=== PATIENT | male | born 1965 | race Caucasian/White ===

== ENCOUNTER 2018-07-23 06:44 | Day surgery (SDC) | payer OTHER ==
[~2018-07-23] VITALS: Ht 172.7 cm; Wt 117.9 kg
[2018-07-23] VITALS (8 sets, daily range): BP systolic 114–143; BP diastolic 78–91
--- NOTE | 2018-07-23 06:24 | Anethesia Preoperative Eval ---
Anesthesia Pre-op PMH/ROS General Date of Evaluation: Jul 23, 2018 Time of Evaluation: 06:21 Anesthesiologist: ankit ASA Score: ASA 3 Mallampati Score Class I : Soft palate, uvula, fauces, pillars visible Class II: Soft palate, uvula, fauces visible Class III: Soft palate, base of uvula visible Class IV: Only hard plate visible Mallampati Classification: Class II Surgeon: joe Diagnosis: gerd Surgical Procedure: egd Anesthesia History: none Social History: smoking - former smoker Family History: no anesthesia problems Allergies: Coded Allergies: No Known Allergies (Unverified , 07/22/18) Medications: see eMAR Past Medical History Cardiovascular: Reports: HTN Gastrointestinal/Genitourinary: Reports: other - ed Musculoskeletal/Integumentary: Reports: other - back injury, back pain Other: obesity PSxH Narrative: colostomy, hernia repair, pelvic sx, Anesthesia Pre-op Phys. Exam Physician Exam Last Vital Signs Date Time Temp Pulse Resp B/P (MAP) Pulse Ox O2 Delivery O2 Flow Rate FiO2 07/23/18 07:15 98.2 70 20 123/91 (102) 96 98.2 07/23/18 07:10 Room Air Constitutional: NAD Neurologic: CN 2-12 intact Cardiovascular: RRR Respiratory: CTA Gastrointestinal: S/NT/ND Airway Exam Mallampati Score: Class II MO: full Neck: short TMD: 2fb ROM: full Teeth: intact Anesthesia Pre-op A/P Risk Assessment & Plan Assessment: asa3 Plan: mac Status Change Before Surgery: No Pre-Antibiotics Drug: Preeti Mathis MD Jul 23, 2018 06:24
[~2018-07-23 06:44] MED LIST: Atropine Inj 1mg/10ml Syr IV PRN; CELEBREX200 MG ORAL; DITROPAN10 MG ORAL; DiphenhydrAMINE 50mg/ml Inj IVP PRN; HYZAAR 100-12.1 EACH ORAL; Midazolam 2mg/2ml Inj IVP PRN; OMEPRAZOLE20 M3 ORAL; TRAMADOL HCL50 MG ORAL; fentaNYL 100 mcg/2 mL IV PRN
[2018-07-23] MEDS ORDERED: LR 1000ml 1,000 ML IVLG SCH (07:00)
[2018-07-23] MEDS ORDERED: AMLODIPINE BESYLATE (07:14)
[2018-07-23] MEDS ORDERED: AMLODIPINE BESY10 MG ORAL (07:14)
[2018-07-23] MEDS ORDERED: Propofol 200mg/20ml IV ONE (07:30)
[2018-07-23] MEDS ORDERED: LR 1000ml ONE (07:30)
[2018-07-23] MEDS ORDERED: Lidocaine 1% MPF 10mg/ml 5ml ONE (07:30)
--- NOTE | 2018-07-23 07:52 | Short Stay Surgery H&P ---
History of Present Illness History of Present Illness Chief Complaint Abdominal pains/GERD/heartburn HPI Je Faith is a 52 year old male who was admitted on for GERD/ Abdominal pains Patient History Allergies: Coded Allergies: No Known Allergies (Unverified , 07/22/18) PAST MEDICAL HISTORY: (1) History of colon surgery (2) History of bladder surgery (3) Pelvic fracture (4) Hypertension (5) Hyperlipidemia Medication History Scheduled Amlodipine Besylate* (Amlodipine Besylate*), 10 MG ORAL DAILY, (Reported) Celecoxib* (Celebrex*), 200 MG ORAL DAILY, (Reported) Losartan/Hydrochlorothiazide 100-12.5 Tablet (Hyzaar 100-12.5 Tablet), 1 TAB ORAL DAILY, (Reported) Omeprazole (Omeprazole), 20 MG ORAL DAILY, (Reported) Oxybutynin Chloride (Oxybutynin Chloride), 10 MG ORAL DAILY, (Reported) Scheduled PRN Tramadol Hcl* (Ultram*), 50 MG ORAL NEEDED PRN for For Pain, (Reported) Durable Medical Equipment [Amlodipine Besylate], (Reported), (DME) Physical Exam Vital Signs Last Vital Signs Date Time Temp Pulse Resp B/P (MAP) Pulse Ox O2 Delivery O2 Flow Rate FiO2 07/23/18 07:15 98.2 70 20 123/91 (102) 96 98.2 07/23/18 07:10 Room Air Plan Attestation Are the patient's medical conditions optimized for surgery? Matthias Curtis MD Jul 23, 2018 07:52
--- NOTE | 2018-07-23 07:53 | Pre-Procedure Note/Attestation ---
Pre-Procedure Note/Attestation Complete Prior to Procedure Planned Procedure: left Procedure Narrative: Examination of the upper GI tract via endoscopy Indications for Procedure Pre-Operative Diagnosis: R/O Peptic Ulcer/Esophagitis/Gastritis Attestation I attest that I discussed the nature of the procedure; its benefits; risks and complications; and alternatives (and the risks and benefits of such alternatives ), prior to the procedure, with the patient (or the patient's legal food service sales representatives). I attest that, if there was a reasonable possibility of needing a blood transfusion, the patient (or the patient's legal food service sales representatives) was given the [facility] standardized written summary, pursuant to the [place] Blood Safety Act ([place] Health and Safety Code # 1645, as amended). I attest that I re-evaluated the patient just prior to the surgery and that there has been no change in the patient's H&P, except as documented below: Matthias Curtis MD Jul 23, 2018 07:53
--- NOTE | 2018-07-23 08:10 | Endoscopy Procedure Note ---
Endoscopy Procedure Note General Indication for Procedure: Abdominal pains/GERDS Procedures Performed: EGD - Small hiatal hernia, otherwise normal Upper GI endoscopy, biopsy taken per random from gastric body. Specimen: yes Pt Tolerated Procedure Well: Yes Estimated Blood Loss: none Anesthesia Anesthesiologist: Dr. Roche Anesthesia: moderate sedation Medications Medication Given: see anesthesia record Inserted Devices Implant(s) used?: No Quality Quality of Bowel Preparation: Excellent Was there any complications?: No GI Core Measures 50 yrs or older w/o bx or poly: Not Applicable 10yrs. F/U not recommended: Not Applicable If not recommended, why?: Med reason:<3 yrs.: System Reason:<3 yrs.: Matthias Curtis MD Jul 23, 2018 08:10
--- NOTE | 2018-07-23 08:10 | Discharge Instructions ---
Discharge Instructions Discharge Instructions Follow up with: Visit the doctor after two weeks in the office. For Congestive Heart Failure Reminder Report to your physician any weight gain of 5 pounds or more in one week. Matthias Curtis MD Jul 23, 2018 08:10
--- NOTE | 2018-07-23 08:29 | Immediate Post-Op Evaluation ---
Immediate Post-Op Evalulation Immediate Post-Op Evalulation Procedure: egd w/bx Date of Evaluation: Jul 23, 2018 Time of Evaluation: 08:22 IV Fluids: 250ml 0.9ns Blood Products: none Estimated Blood Loss: negligible Blood Pressure Systolic: 114 Blood Pressure Diastolic: 83 Pulse Rate: 63 Respiratory Rate: 18 O2 Sat by Pulse Oximetry: 100 Temperature (Fahrenheit): 98.6 Pain Score (1-10): 0 Nausea: No Vomiting: No Complications none Patient Status: awake, reacts, patent Hydration Status: adequate Drug: Preeti Mathis MD Jul 23, 2018 08:29
--- NOTE | 2018-07-23 08:31 | 48 Hour Post Anesthesia Eval ---
Post Anesthesia Evaluation Procedure: egd w/bx Date of Evaluation: Jul 23, 2018 Time of Evaluation: 08:24 Blood Pressure Systolic: 116 0: 82 Pulse Rate: 63 Respiratory Rate: 18 Temperature (Fahrenheit): 98.6 O2 Sat by Pulse Oximetry: 100 Airway: patent Nausea: No Vomiting: No Pain Intensity: 0 Hydration Status: adequate Cardiopulmonary Status: stable Mental Status/LOC: patient returned to baseline Post-Anesthesia Complications: none Follow-up care needed: N/A Preeti Perales MD Jul 23, 2018 08:31
--- NOTE | 2018-07-23 10:15 | Operative Note - Dictated ---
DATE OF OPERATION: 07/23/2018 SURGEON: Matthias Curtis M.D. PROCEDURE: Esophagogastroduodenoscopy with biopsy. PREOPERATIVE DIAGNOSES: 1. Abdominal pain. 2. History of gastroesophageal reflux. POSTOPERATIVE DIAGNOSIS: Small hiatal hernia. Otherwise, complete normal upper GI endoscopy. Biopsy was taken per random from gastric body. MEDICATION USED: Per Dr. Roche, anesthesiologist. INSTRUMENT: GIF Olympus upper GI video endoscope. DESCRIPTION OF PROCEDURE: The patient, after arriving endoscopy unit, was told about risks and benefits of the procedure, which he accepted and signed informed consent. At this time, he was put on the left lateral decubitus position. After adequate IV sedation, the scope was gently passed through the cricopharyngeal area, was lodged into the upper esophagus, and gradually advanced towards gastroesophageal junction. The entire length of the esophagus looked normal. No evidence of any inflammatory process, ulceration, stricture, etc. was found. Upon entering to the GE junction, evidence of a small hiatal hernia, but there was no any evidence of Morris's or inflammatory process in the GE junction. At this point, the scope was advanced into the stomach. Gastric cavity was distended and gradually, the areas of the fundus and the body and the antrum of the stomach were examined very closely, which revealed no particular abnormality including inflammatory process, ulceration, etc. A retroflexion maneuver was also applied here and the area of the gastroesophageal junction was examined in a closer fashion, which revealed basically normal findings. Finally, the scope was gradually advanced into the body of the stomach. A random biopsy from gastric body was obtained. Subsequently, the scope was passed through the antrum and pyloric channel and duodenum, first and second portion all looked normal and no ulcerations or inflammatory process was seen. Finally, scope was pulled out and the procedure was terminated. The patient tolerated the procedure well, left the endoscopy room in a good condition. Matthias Curtis M.D. DR: WILLIAM JOB#: [id number] CC:
--- NOTE | 2018-07-23 15:30 | Pre-op HX & Phy Repo 2 SIG ---
DATE OF ADMISSION: 07/23/2018 HISTORY OF PRESENT ILLNESS: The patient is a 52-year-old gentleman who is being seen prior to undergoing the procedure of upper GI endoscopy for which he has been scheduled to receive an evaluation of his gastrointestinal symptoms that he has suffered subsequent to his work injury. The patient subsequently had been seen by different physicians due to his injuries and has received treatments however. I examined him in my office a few weeks ago for the problem that he was complaining basically of feeling abdominal pain located over the epigastric area associated with heartburn. These symptoms were aggravated by consumption of food. There was no history of nausea or vomiting however. The patient has been taking medications such as Tums for heartburn and also medication of omeprazole 20 mg every morning as he tells me. 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 At this time, the patient also denies having any nausea or vomiting blood or passing bright red blood per rectum having black stools. As I mentioned, when he got injured at job site, his colon and bladder were injured and he did receive colostomy for a while. PAST MEDICAL HISTORY: Basically reveals history of hypertension and he has had history of pelvic and bladder infections. PAST SURGICAL HISTORY: The patient has undergone different surgeries including anorectal fistula repair, colonic surgery, bladder surgery, and pelvic fracture. ALLERGIES: None. HABITS: The patient rarely drinks any alcohol and does not smoke cigarettes. MEDICATIONS: Celecoxib, omeprazole, tramadol, amlodipine, losartan/HCT, and oxybutynin. REVIEW OF SYSTEMS: Basically, history of present illness. The patient denies having any chest pain, shortness of breath, or cough. However, he reports that he does have some urinary incontinence. He also denies having any major anxiety or depression at this point in time. PHYSICAL EXAMINATION: GENERAL: At this time reveals alert and oriented gentleman, does not seem to be in any acute distress. He looks well developed and nourished, overweight, and obese. VITAL SIGNS: Stable. HEENT: Normocephalic. Pupils equal in size, reactive to light and accommodation. No visible jaundice. Buccal cavity, tongue midline, well hydrated. No ulcers. NECK: Supple. No JVD, thyromegaly, or adenopathy. CHEST: Clear to auscultation and percussion. No rales or rhonchi. HEART: S1 and S2 normal. Regular rhythm. No gallops or murmur. ABDOMEN: Obese, but there are some areas of tenderness over the sides of the abdomen, particularly over the left side. There is also evidence of some tenderness over the epigastric area as I can see some abdominal wall areas as well, which I think is secondary to the surgeries that the applicant has had in the past and incisions. EXTREMITIES: Unremarkable. No pretibial edema, cyanosis, or clubbing. CENTRAL NERVOUS SYSTEM: Grossly normal. PREOPERATIVE IMPRESSION: 1. Epigastric pain of uncertain etiology, rule out peptic ulcer disease, gastritis, duodenitis secondary to use of NSAID medication used for the treatment of bodily injury. 2. Possibly gastroesophageal acid reflux affected by obesity and side effects of NSAID medications. 3. Morbid obesity, hypertension. 4. Status post colon and bladder surgery due to work-related trauma. RECOMMENDATION: The applicant at this time seems to be stable to undergo the procedure for upper GI endoscopy for which he has been scheduled. He understands the risks and benefits and will sign the consent. Said Natalie Curtis DR: WILLIAM JOB#: [id number] CC:
== END 2018-07-23 09:25 | disposition home or self-care (01) ==
LOC: GAS 06:44
DX: K29.50 Unspecified chronic gastritis without bleeding (principal); K44.9 Diaphragmatic hernia without obstruction or gangrene; K21.9 Gastro-esophageal reflux disease without esophagitis; I10 Essential (primary) hypertension; E78.5 Hyperlipidemia, unspecified; E66.01 Morbid (severe) obesity due to excess calories
CPT/HCPCS: 43239; J2704; 94003; 94150